=== PATIENT | male | born 1990 | race African-American/Black ===

== ENCOUNTER 2021-07-14 09:26 | Emergency (ER) | payer OTHER ==
[2021-07-14 10:07] LABS: #Monocytes 0.8 10x3/uL (0.0-1.1); %Basophils 0.4 % (0.0-2.0); %Eosinophils 0.6 % (0.0-6.0); %Lymphocytes 30.4 % (18.0-47.0); %Monocytes 10.9 % (0.0-10.0); %Neutrophils 57.4 % (40.0-75.0); Mean Corpuscular HGB CONC 32.9 g/dL (32.0-36.0); Mean Corpuscular Hemoglobin 26.3 pg (27.0-33.0); Mean Corpuscular Volume 79.9 fl (81.2-95.1); Mean Platelet Volume 9.6 fl (7.4-10.4); Platelet Count 263 10x3/uL (150-450); RBC Distribution Width 13.8 % (11.5-14.5); Red Blood Cell (RBC) Count 4.57 10x6/uL (4.32-5.72); White Blood Cell (WBC) Count 6.9 10x3/uL (3.5-10.5)
[2021-07-14 10:08] LABS: ALT (SGPT) 35 U/L (8-55); AST (SGOT) 21 U/L (5-34); Albumin 3.9 g/dL (3.5-5.0); Alkaline Phosphatase 186 U/L (40-110); Anion Gap 11 mmol/L (10-20); BUN (Urea Nitrogen) 12 mg/dL (8.9-20.6); Bilirubin, Total 0.6 mg/dL (0.2-1.2); Calc. Creatinine Clearance 0 mL/min (70-130); Calcium 9.3 mg/dL (7.8-10.44); Carbon Dioxide 23 mmol/L (22-29); Chloride 110 mmol/L (98-107); Globulin 3.6 g/dL (2.4-3.5); Glucose 121 mg/dL (70-105); Protein, Total 7.5 g/dL (6.0-8.3); Sodium 142 mmol/L (136-145)
[2021-07-14 10:14] LABS: Potassium 1.9 mmol/L (3.5-5.1)
[2021-07-14 10:16] LABS: Bilirubin Neg (Negative); Blood, Urine Negative (Negative); Clarity Clear (Clear); Glucose, Urine (Dipstick) Normal (Negative); Ketone, Urine Negative (Negative); Leukocyte Negative (Negative); Nitrite Negative (Negative); Protein, Urine (Dipstick) Negative (Neg-Trace); Urobilinogen Normal mg/dL (Less than 2)
[2021-07-14 10:23] LABS: Amphetamine Not Detected (NotDetected); Barbiturates Screen Not Detected (NotDetected); Benzodiazepine Screen Not Detected (NotDetected); Cocaine Metabolite Screen Not Detected (NotDetected); Methadone Not Detected (NotDetected); Methamphetamine Not Detected (NotDetected); Opiate Screen Not Detected (NotDetected); Oxycodone Screen Not Detected (NotDetected); Phencyclidine (PCP) Not Detected (NotDetected); THC/Cannabinoid Screen Not Detected (NotDetected); Tricyclic Screen Not Detected (NotDetected)
[2021-07-14] MEDS ORDERED: Potassium Chloride 20 MEQ TAB ONE (10:23)
[2021-07-14 10:24] LABS: Acetaminophen Less than 6.0 mcg/mL (10.0-30.0); Alcohol Less than 10 mg/dL (Less than 10); CK (CPK) 186 U/L (30-200); Salicylate Less than 8.0 mg/dL (15.0-30.0)
[2021-07-14] MEDS ORDERED: D5 1/2 NS w/20 mEq KCL 1,000 ML ONE (10:55)
[2021-07-14 11:14] LABS: Magnesium 1.5 mg/dL (1.6-2.6)
[2021-07-14] MEDS ORDERED: Magnesium 2 GM/50 ML BAG (IN WATER) ONE (11:46)
[2021-07-14 12:10] LABS: SARS-CoV-2 NAA Rapid Test Not Detected (NotDetected)
[2021-07-14 13:21] LABS: Free T4 (Free Thyroxine) 4.27 ng/dL (0.70-1.48)
[2021-07-14] MEDS ORDERED: Metoprolol Tartrate 25 MG TAB ONE (14:09)
[2021-07-14 15:32] LABS: Anion Gap 11 mmol/L (10-20); BUN (Urea Nitrogen) 11 mg/dL (8.9-20.6); Calc. Creatinine Clearance 0 mL/min (70-130); Calcium 9.5 mg/dL (7.8-10.44); Carbon Dioxide 23 mmol/L (22-29); Chloride 111 mmol/L (98-107); Glucose 111 mg/dL (70-105); Magnesium 1.9 mg/dL (1.6-2.6); Potassium 3.8 mmol/L (3.5-5.1); Sodium 141 mmol/L (136-145)
== END 2021-07-14 14:55 | disposition short-term general hospital (02) ==
LOC: CSHERS 09:26 → EEVIPCON 09:26 → CSHERS 14:55
DX: E87.6 Hypokalemia (principal); E83.42 Hypomagnesemia; E07.9 Disorder of thyroid, unspecified; Z20.822 Contact with and (suspected) exposure to COVID-19
CPT/HCPCS: 36415; 70450; 71045; 80053; 80306; 80307; 81003; 82550; 83605; 83735; 84439; 84443; 84481; 84484; 85025; 86140; 93005; 94760; 96374; 96375; J3475; J3480; U0002